=== PATIENT | male | born 1980 | race Caucasian/White ===

== ENCOUNTER 2019-04-25 09:45 | Inpatient (IN) | payer BC ==
[~2019-04-25 09:45] MED LIST: Buffered Lidocaine 1% SYRIN* 1 ML/SYRINGE INTRADERM ONE; Dexamethasone IV* 4 MG/ML 1 ML (4 MG) IV SLOW PU ONE; DiMENhydriNATE IV* 50 MG/ML VIAL IV PUSH PRN; Famotidine IV* 10 MG/ML 2 ML (20 mg) IV ONE; Lactated Ringers 1000 ML Bag* 1,000 ML IV SCH; Naloxone* 0.4 MG/ML 1 ML VIAL IV PRN; Ondansetron ODT TAB* 4 MG PO ONE; PROCHLORPERAZINE INJ 5 MG/ML 2 ML VIAL IV PRN; Scopolamine 1.5 mg* PATCH TRANSDERM PRN; fentaNYL* 50 MCG/ML 2 ML VIAL (100 MCG VIAL) IV PRN
[2019-04-25] MEDS ORDERED: Propofol* 10 MG/ML 20 ML BTL ONE (10:05)
[2019-04-25] MEDS ORDERED: Lidocaine 2% PF * 5 ML VIAL ONE (10:06)
[2019-04-25] MEDS ORDERED: Midazolam* 1 MG/ML 5 ML VIAL (5 MG) ONE (10:07)
[2019-04-25] MEDS ORDERED: KETAMINE HCL* 50 MG/ML 10 ML VIAL ONE (10:07)
[2019-04-25] MEDS ORDERED: fentaNYL* 50 MCG/ML 5 ML VIAL (250 MCG VIAL) ONE (10:07)
[2019-04-25] MEDS ORDERED: Rocuronium* 10 MG/ML VIAL ONE ×2 (10:07→13:14)
[2019-04-25] MEDS ORDERED: Heparin VIAL(*) 5000 UNITS/ML VIAL (FIVE THOUSAND) ONE (11:31)
[2019-04-25] MEDS ORDERED: ceFAZolin 2 GM PREMIX in ORs 2 GM/50 ML BAG ONE (11:32)
[2019-04-25] MEDS ORDERED: ceFAZolin 1 GM ADVAN(*) 1 GM ADDV.VIAL IVPB ONE (11:32)
[2019-04-25] MEDS ORDERED: Dexamethasone IV* 4 MG/ML 1 ML (4 MG) ONE (11:32)
[2019-04-25] MEDS ORDERED: Famotidine IV* 10 MG/ML 2 ML (20 mg) ONE (11:32)
[2019-04-25] MEDS ORDERED: Methylene Blue 0.5 %* 50 MG/10 ML AMP IV ONE (11:45)
[2019-04-25] MEDS ORDERED: Bupivacaine 0.25% W/EPI* 10 ML SDV ONE (11:45)
[2019-04-25] MEDS ORDERED: Ondansetron INJ* 2 MG/ML VIAL ONE (11:47)
[2019-04-25] MEDS ORDERED: Ondansetron ODT TAB* 4 MG ONE (11:49)
[2019-04-25] MEDS ORDERED: Scopolamine 1.5 mg* PATCH ONE (13:05)
[2019-04-25] MEDS ORDERED: Acetaminophen IV 1GM/100ML * 100 ML ONE (13:15)
[2019-04-25] MEDS ORDERED: HYDROmorphone INJ1* 1 MG/ML SYRINGE ONE ×2 (13:48→15:56)
[2019-04-25] MEDS ORDERED: Sugammadex * 500 MG/5 ML VIAL IV PUSH ONE (14:48)
[2019-04-25] MEDS ORDERED: Labetalol IV* 5 MG/ML 20 ML VIAL ONE (15:01)
--- NOTE | 2019-04-25 15:20 | BRIEFOPN ---
Brief Operative/Procedure Note - Operation Details Pre-Op Diagnosis: morbid obesity Post-Op Diagnosis: same Procedures: Laparoscopic sue en y gastric bypass Surgeon(s)/Proceduralists: Dr. Osman. Assist: ENRIQUE Emmanuel; TOM Brasher Anesthesia: GET Estimated Blood Loss: <50cc; IV fluids 1500cc Findings: same Specimen(s)/Culture(s) Description: none Complications: none
[2019-04-25] MEDS ORDERED: hydrALAZINE IV* 20 MG/ML VIAL ONE (15:29)
[2019-04-25] MEDS ORDERED: Acetaminophen ADULT LIQ* 650 MG/20.3 ML UDC PO PRN (15:36)
[2019-04-25] MEDS ORDERED: PROCHLORPERAZINE INJ 5 MG/ML 2 ML VIAL ONE (15:47)
[2019-04-25] MEDS ORDERED: DiMENhydriNATE IV* 50 MG/ML VIAL ONE (15:48)
[2019-04-25] MEDS ORDERED: Ketorolac INJ* 30 MG/ML 1 ML VIAL ONE (15:56)
[2019-04-25] MEDS: Ketorolac INJ* 30 MG/ML 1 ML VIAL IV SCH ×2 (15:57→22:01)
[2019-04-25] MEDS: HYDROmorphone INJ1* 1 MG/ML SYRINGE IV PRN ×5 (16:00→16:43)
[2019-04-25] MEDS: Lactated Ringers 1000 ML Bag* 1,000 ML IV SCH (17:38)
[2019-04-25] MEDS: Ondansetron INJ* 2 MG/ML VIAL IV PRN (20:06)
[2019-04-25] MEDS: HYDROmorphone INJ1* 1 MG/ML SYRINGE IV SLOW PU PRN (20:07)
[2019-04-25] MEDS: Famotidine IV* 10 MG/ML 2 ML (20 mg) IV SLOW PU SCH (21:54)
[2019-04-25] MEDS: Heparin VIAL(*) 5000 UNITS/ML VIAL (FIVE THOUSAND) SUBCUT SCH (22:01)
--- NOTE | 2019-04-25 22:17 | OP ---
CC: [facility]; Dr. Magdi Judge * DATE OF OPERATION: 04/25/19 - ROOM #352 DATE OF : 76 SURGEON: Wu Osman MD OUTSIDE [employer] CONSULTANT: ENRIQUE Cody ANESTHESIOLOGIST: Dr. Dalton. ANESTHESIA: General anesthesia. PRE-OP DIAGNOSIS: Clinically severe obesity. POST-OP DIAGNOSIS: Clinically severe obesity. OPERATIVE PROCEDURE: Laparoscopic Srinivasa-en-Y gastric bypass. BLOOD LOSS: Less than 50 cc. CRYSTALLOID FLUID: Please see report for details. DRAINS: None. SPECIMEN: None. DESCRIPTION OF PROCEDURE: The patient was identified in the preoperative area. Marked consent was signed after discussion of the case with him and his family member. He was then seen by the anesthesiologist in the team and brought to the operating room and placed on the operating table in the supine position. Preoperative antibiotics were given. Sequential devices were placed on bilateral lower extremities. General anesthesia was induced. The patient's abdomen was prepped and draped in the standard surgical fashion. A time-out was performed. Folds of the umbilicus were elevated anteriorly and a Veress needle was inserted into the abdominal cavity, which was then allowed to insufflate to a pressure of 15 mmHg. The patient tolerated the insufflation well. Laton between the umbilicus and xiphoid, a 12 mm optical trocar was inserted. The Veress needle was then able to be removed and review of the abdomen showed bulky appearing liver. There is no free fluid. The bowel appeared intact and peristalsing with a large omentum. Additional trocars were placed in the following position: A 5-mm and a 12-mm in the left upper quadrant and a 5-mm and a 12-mm in the right upper quadrant. Next, the omentum was reflected superiorly, the transverse colon identified and a window made through the leaflet of the omentum and the omentum was split with LigaSure device right up towards the stomach. Next, the patient was placed in a steep reverse Trendelenburg. The Daniel retractor was inserted and the bulky liver was retracted anteriorly into the right, this exposed the gastroesophageal fat pad, which was grasped and retracted towards the right lower quadrant. Both blunt and sharp dissection was carried out to expose the gastrophrenic ligament and we kept it safe without dissecting it. We then made a retrogastric tunnel at approximately the second crossing vessel and a 45 mm pedraza [place] stapling device was fired through this. The stomach pouch was completed with 2 additional 60 mm staplers. The last stapler placed over a 32- Arabic Gita tube. Additional 45 mm pedraza stapler was used at the upper portion just to trim off a small edge to create a more normal appearing pouch. This additional triangular area was attached to the remnant and it was trimmed off. We removed it and did not pass it off as specimen. With the appropriately sized pouch as I felt, we then went to the transverse colon again, identified the ligament of Treitz and counted off approximately 50 cm. In the appropriate orientation, an omega loop was then sutured to the lateral edge of the stomach pouch. Next, we created a gastrojejunostomy anastomosis after making a gastrotomy over the Gita tube and an enterotomy. We did this with a 30 mm pedraza [place] stapling device and closed the common defect with running 3-0 PDS sutures at time in the middle. Additional 3-0 silk sutures were used to buttress this. Next, the Gita tube was passed through the anastomosis, it passed freely into the Srinivasa limb. We backed this out and then transected the omega loop at the appropriate site just leaving about a 1 cm cuff of efferent limb into the gastrojejunostomy anastomosis. Next, the Gita tube was passed into the Srinivasa limb again and a methylene blue dye test was performed and was negative. The tube was then removed by the anesthesiologist and attention was turned towards the Srinivasa limb. Approximately, 80 cm was counted off the Srinivasa limb and this was brought in opposition to the biliopancreatic limb with the appropriate orientation of the mesentery. We then walked this bowel antegrade towards the terminal ileum to ensure that we had a significant amount of bowel distal to the jejunojejunostomy. Next, the jejunojejunostomy was created in a standard fashion with 60 mm pedraza CHE[place]NE stapling device and the common defect closed with 2-0 silk sutures and the mesenteric defects similarly closed with 2-0 silk sutures in a [id number] fashion. Review of the Srinivasa limb showed that it laid in appropriate orientation. There is no bleeding or bile. We removed the Daniel retractor and the liver fell back on to the gastric pouch fully obscuring it. The needle count and the gauze counts were good. The abdomen was allowed to collapse. Trocars were removed under direct vision and all 6 skin incisions were reapproximated with 4-0 Monocryl subcuticular sutures. Steri-Strips and sterile dressing were applied. The patient tolerated the procedure well, was transferred to the PACU in stable condition. [id number]/[facility] #: [id number] MTDD
[2019-04-26] MEDS: Lactated Ringers 1000 ML Bag* 1,000 ML IV SCH ×2 (00:33→07:44)
[2019-04-26] MEDS: HYDROmorphone INJ1* 1 MG/ML SYRINGE IV SLOW PU PRN ×3 (03:10→19:19)
[2019-04-26] MEDS: Ketorolac INJ* 30 MG/ML 1 ML VIAL IV SCH ×4 (04:10→21:45)
[2019-04-26] MEDS: Heparin VIAL(*) 5000 UNITS/ML VIAL (FIVE THOUSAND) SUBCUT SCH ×3 (07:02→21:45)
[2019-04-26] MEDS: Famotidine IV* 10 MG/ML 2 ML (20 mg) IV SLOW PU SCH ×2 (08:00→21:45)
[2019-04-26] MEDS: Ondansetron INJ* 2 MG/ML VIAL IV PRN ×2 (10:06→16:24)
--- NOTE | 2019-04-26 11:41 | PN ---
Progress Note - Progress Note Date of Service: 04/26/19 Note: S: POD #1. Doing well overall. Seen earlier this a.m. by Dr. Osman. Pain controlled w/ Toradol and dilaudid. Has some nausea, worse after walking. No flatus. O: Vital Signs - 8 hr 04/26/19 04/26/19 04/26/19 04:10 07:45 08:00 Temperature Pulse Rate Respiratory 18 18 16 Rate Blood Pressure (mmHg) O2 Sat by Pulse 92 Oximetry 04/26/19 04/26/19 04/26/19 08:11 08:39 09:21 Temperature 98.3 F Pulse Rate 68 Respiratory 16 18 Rate Blood Pressure 120/69 (mmHg) O2 Sat by Pulse 91 92 Oximetry Intake and Output Last 24 Hours 04/24/19 04/25/19 04/26/19 04/27/19 06:59 06:59 06:59 06:59 Intake Total 2580 1008 Output Total 700 Balance 1880 1008 Weight 253 lb 12.8 oz Intake: IV Fluids 2580 1008 LR 2580 1008 Oral 0 Output: Urine 700 Other: # Voids 1 Heart: reg Lungs: clear Abd: +BS; lap sites ok under tegaderms; soft; mild incisional tenderness only Extr: SCDs on UGI: Indication: Status post gastric bypass. Approximately 0.5 minutes of fluoroscopy time was used. Water-soluble contrast was given to the patient. Oral and frontal phase of deglutition appear unremarkable. The esophagus appears unremarkable. Gastric pouch demonstrates no obstruction. Free flow of contrast into the small bowel is noted. No extraluminal contrast is identified. IMPRESSION: No extraluminal contrast is noted. No obstruction is identified. A: s/p lap sue en y gastric bypass, doing well P: start di clears; if bibiana well, poss d/c later this pm
[2019-04-26] MEDS: HYDROcodone/ACET. 7.5/325 LIQ* 15 ML UDC PO PRN (13:40)
[2019-04-26] MEDS: D5W 1/2 NS KCl 20 Meq 1000 ML* 1,000 ML IV SCH (16:21)
[2019-04-27] MEDS: HYDROcodone/ACET. 7.5/325 LIQ* 15 ML UDC PO PRN ×2 (00:13→10:34)
[2019-04-27] MEDS: D5W 1/2 NS KCl 20 Meq 1000 ML* 1,000 ML IV SCH (00:15)
[2019-04-27] MEDS: Ketorolac INJ* 30 MG/ML 1 ML VIAL IV SCH ×2 (04:14→09:51)
[2019-04-27] MEDS: Heparin VIAL(*) 5000 UNITS/ML VIAL (FIVE THOUSAND) SUBCUT SCH (05:40)
[2019-04-27 08:09] VITALS: BP 100/52
--- NOTE | 2019-04-27 09:17 | PN ---
Progress Note - Progress Note Date of Service: 04/27/19 SOAP: Subjective: Pt tolerating bariatric clears, has had a BM, is ambulating well and would like to go home. [] Objective: Vital Signs Temp 98.0 F 04/27/19 08:08 Pulse 66 04/27/19 08:08 Resp 18 04/27/19 08:08 BP 100/52 04/27/19 08:08 Pulse Ox 97 04/27/19 08:08 Intake & Output 04/26/19 04/27/19 04/27/19 18:59 06:59 18:59 Intake Total 2349 1150 Output Total 350 1425 Balance 1998 Intake: IV Fluids 1988 940 D5W 07/14 NS 20 meq KCL 940 LR 1988 Oral 360 210 Output: Urine 350 1425 Other: Estimated Void Medium # Bowel Movements 2 Estimated Stool Amount Medium # Voids 1 PEX:[] Chest: CTA B/L CVS: RRR ABD: Incision sites tegaderm dressings C/D/I incisional tenderness, soft, hypoactive BS's EXT: calves soft B/L, Non tender Assessment: 38 yo male POD #2 S/P sue en y gastric bypass. Tolerating Vazquez clears, + BM's [] Plan: D/C home in stable condition. F/U in office as scheduled. []
--- NOTE | 2019-04-27 09:47 | DS ---
DISCHARGE SUMMARY: DATE OF ADMISSION: 04/25/19 DATE OF DISCHARGE: 04/27/19 SURGEON: Dr. Wu Osman.* (DICTATED BY ENRIQUE JAMES) DISCHARGE DIAGNOSIS: Morbid obesity. REASON FOR ADMISSION: Morbid obesity. HOSPITAL COURSE: The patient admitted on 04/25/19 for a Srinivasa-en-Y gastric bypass surgery. The patient tolerated the procedure well, was then transferred to the recovery room and later to the surgical care unit for postoperative medical care. Postop medical course was uneventful. On 04/27/19, postop day 2, the patient's wounds were clean, dry and intact. His lungs were clear. He was moving his bowels, tolerating his bariatric liquid diet. The patient will be discharged home today in stable condition. Discharge instructions were given regarding his diet, his medications, his activity and his followup. All questions were answered. patient is discharged home in stable condition on 04/27/19. ENRIQUE JAMES [id number]/[facility] #: [id number] MTDD
[2019-04-27] MEDS: Famotidine IV* 10 MG/ML 2 ML (20 mg) IV SLOW PU SCH (09:51)
[2019-04-28] MEDS ORDERED: Scopolamine PATCH Remove* 1 NOTE MISC PATCH OFF ONE (05:59)
== END 2019-04-27 10:50 | disposition home or self-care (01) | DRG 403 ==
LOC: AA 10:45 → SSU 15:36
PROVIDERS: ADMIT Surgery; ATTEND Surgery
PROC: 0D164ZA Bypass Stomach to Jejunum, Percutaneous Endoscopic Approach (ICD-10-PCS; principal; 2019-04-25 12:15)
DX: E66.01 Morbid (severe) obesity due to excess calories (principal); E11.9 Type 2 diabetes mellitus without complications; G47.33 Obstructive sleep apnea (adult) (pediatric); K21.9 Gastro-esophageal reflux disease without esophagitis; E78.00 Pure hypercholesterolemia, unspecified; I11.9 Hypertensive heart disease without heart failure; E78.5 Hyperlipidemia, unspecified; Z68.41 Body mass index [BMI] 40.0-44.9, adult; Z72.89 Other problems related to lifestyle; Z87.891 Personal history of nicotine dependence; Z98.52 Vasectomy status
CPT/HCPCS: 43644; 74246; A9270-GY; C1776; J0360; J0690; J0780; J1100; J1170; J1240; J1644; J1885; J2250; J2405; J2704; J3010

== ENCOUNTER 2019-08-26 17:20 | Emergency (ER) | payer BC ==
--- OUTSIDE RECORDS SUMMARY | 2019-08-26 17:30 | XMS REPORT | Continuity of Care Document ---
:1980 Author Organization 0001 - [facility] Address [address] [place] [address] Phone Care Team Providers Name Role Phone LUZ FRENCH NP Unavailable Unavailable Allergies, Adverse Reactions, Alerts Substance Reaction Status No Known Allergies Active Medications Medication Instructions Dosage Effective Dates Status Comments (start - stop) amoxicillin 875 mg take 1 tablet by 875 MG - Active tablet oral route every 12 hours Tamiflu 75 mg take 1 capsule by 75 MG - Active capsule oral route 2 times every day lisinopril 20 take 1 tablet by 1.00 tablet - Active mg-hydrochlorothiazi oral route every de 12.5 mg tablet day Trulicity 0.75 inject 0.5 0.75 MG - Active mg/0.5 mL milliliter by subcutaneous pen subcutaneous route injector every week in the abdomen, thigh, or upper arm rotating injection sites Zoloft 25 mg tablet take 1 tablet by 25 MG - Active oral route every day Rozerem 8 mg tablet take 1 tablet by 8 MG - Active oral route every day at bedtime omeprazole 20 mg take 1 capsule by 20 MG - Active capsule,delayed oral route every release day 30 minutes to 1 hour before a meal FreeStyle Lancets 28 use as directed to - Active E11.9 gauge check Blood sugar 2x daily blood pressure use as directed - Active monitor kit FreeStyle Lite Meter use by as directed Not Available - Active E11.9 kit route 2 times every day FreeStyle Lite take 1 by 1 - Active E11.9 Strips Subcutaneous route 2 times every day Problems Condition Effective Dates (start - stop) Clinical Status Pharyngitis due to Streptococcus species Acute pharyngitis, unspecified Procedure and treatment not carried - out, unspecified reason Plantar fasciitis, bilateral Anxiety Body mass index (BMI) 40.0-44.9, adult Type 2 diabetes mellitus with hyperglycemia Essential hypertension Personal history of nicotine - dependence Essential (primary) hypertension - Essential hypertension Insomnia, unspecified type Gastroesophageal reflux disease, esophagitis presence not specified Intractable migraine without status migrainosus, unspecified migraine type Personal history of nicotine - dependence Type 2 diabetes mellitus with hyperglycemia Chronic midline low back pain without sciatica Diarrhea, unspecified type Essential hypertension Other chronic pain - Adverse effect of insulin and oral - hypoglycemic drugs, init [facility] (current) use of oral - hypoglycemic drugs Personal history of nicotine - dependence Type 2 diabetes mellitus with hyperglycemia Essential hypertension BMI 40.0-44.9, adult [employer] (current) use of oral - hypoglycemic drugs Personal history of nicotine - dependence Frequent headaches Essential hypertension Acute non-recurrent maxillary sinusitis Personal history of nicotine - dependence Sleep apnea in adult Procedure and treatment not carried - out, unspecified reason Essential hypertension Type 2 diabetes mellitus with hyperglycemia Plantar fasciitis, bilateral Other [facility] (current) drug therapy - [employer] (current) use of oral - hypoglycemic drugs Personal history of nicotine - dependence Type 2 diabetes mellitus with - hyperglycemia Plantar fasciitis, bilateral Plantar fasciitis, bilateral Essential hypertension Nonintractable episodic headache, unspecified headache type Obesity, morbid, BMI 40.0-49.9 Type 2 diabetes mellitus with hyperglycemia Personal history of nicotine - dependence Patient's other noncompliance with - medication regimen Body mass index (BMI) 40.0-44.9, adult - Type 2 diabetes mellitus without complications Type 2 diabetes mellitus without complications Anxiety Essential (primary) hypertension Personal history of nicotine - dependence Patient's other noncompliance with - medication regimen Prediabetes Curvature of the penis Cough Strep pharyngitis Type 2 diabetes mellitus without complications Encounter for screening for malignant - neoplasm of prostate Type 2 diabetes mellitus without - complications Essential (primary) hypertension - Essential (primary) hypertension Type 2 diabetes mellitus without complication, without long-term current use of insulin Acute non-recurrent maxillary sinusitis Status, sterilization, vasectomy - Sterilization - Contraceptive counseling NEC - Rash and nonspecific skin eruption Procedures Procedure Date Procedure Unknown Results Test Name Date and Time Measure Units Reference Range Abnormal Flag Status Comments Unknown Encounters Encounter Practice Location Reason(s) Diagnoses Date Provider Providers Description For Visit Copied on Encounter 2019 - S Pharyngitis due to Tomi-0 [employer], Primary Streptococcus 9- LUZ. 33-57 Care speciesAcute 0 54 [facility] pharyngitis, [place], [place], [place], unspecified [address]. [place] tel:[phone] [place], [place], [address], [place] tel:[phone] 0001 - [facility] Tomi-0 [employer], Primary 8-202 DOM. 54 33-57 Care 0 [facility], [place], [place], [place] [address]. [place], tel:[phone], 051753 tel:[phone] 0001 - S Dec-0 [employer], Primary 9-201 LUZ. 33-57 Care 9 [address] [place], [place], [place], [address]. [place] tel:[phone] [facility] [phone], [place] tel:[phone] 0001 - [facility] Oct-0 [employer], Primary 2-201 DOM. 54 33-57 Care 9 [facility], [place], [place], [place] [address]. [place], tel:[phone], 926940 tel:[phone] 0001 - [employer] Procedure and [employer], Primary treatment not 6 DOM. 54 Care carried out, 9 [facility] unspecified reason [facility], [place], [place], [place] [address]. [place], tel:[phone], [place] [address] tel:[phone] 0001 - S Feb-0 [employer]ISING [employer] Inc, Primary 8 LUZ. Care 9 [address] [place], [place], [place], [address]. [place] tel:[phone] [place], [place], [phone], [place] tel:[phone] 0001 - S Jan- [employer], Primary 0 DOM. 54 Care 9 [facility], [facility], [place], [place], [place] [address]. [place], tel:[phone], 067114 tel:[phone] 0001 - S Plantar fasciitis, MARY KAY S Inc, Primary bilateralAnxiety [place]. Care 9 [address] [place], [place], [place], [address]. [place] tel:[phone] [place], [place], 24[address], [place] tel:[phone] 0001 - S 0 [employer], Primary DOM. 54 Care 9 [facility], [place], [place], [place] [address]. [place], tel:[phone], [place] 866819 tel:[phone] 0001 - S Body mass index Zack- [employer], Primary (BMI) 40.0-44.9, DOM. 54 Care adultType 2 9 [facility] diabetes mellitus [facility], [place], [place], [place] hyperglycemiaEssent [address]. [place], ial tel:[phone], [place] hypertensionPersona [id number] tel:[phone] l history of [id number] nicotine dependence 0001 - S Essential (primary) MARY KAY S Inc, Primary hypertension 9-201 [place]. Care [address], Jose C [place], [place], [address]. [place] tel: [place], [place], [phone], [place] tel: [phone] 0001 [facility] Essential MARY KAY [employer] [facility], Primary hypertensionInsomni 4-201 [place]. Care a, unspecified [address], Jose C [place] typeGastroesophagea [place], [place], Street, l reflux disease, [address]. [place] esophagitis tel: [place], [place], presence not [phone], [place] specifiedIntractabl tel: e migraine without [phone] status migrainosus, unspecified migraine typePersonal history of nicotine dependence 2019 [facility] Type 2 diabetes Sep- [facility], Primary mellitus with 5-201 DOM. 54 Care hyperglycemiaChroni [address], Jose C Dickerson c midline low back [facility], Street, pain without [place], [place] sciaticaDiarrhea, [address]. [facility], [place], unspecified tel: [phone], [place] typeEssential [id number] tel: hypertensionOther [id number] chronic painAdverse effect of insulin and oral hypoglycemic drugs, initLong term (current) use of oral hypoglycemic drugsPersonal history of nicotine dependence 2019 [facility] Type 2 diabetes Aug- MARY KAY [facility], Primary mellitus with 5-201 [place]. Care hyperglycemiaEssent [address] , Jose C [place] ial hypertensionBMI [place], [place], Street, 40.0-44.9, [address]. [place] adultLong term tel: [place], (current) use of [phone], [place] oral hypoglycemic tel: drugsPersonal [id number] history of nicotine dependence 0001 [facility] Frequent RISING [employer] [facility], Primary headachesEssential 7-201 LUZ. Care hypertensionAcute [address] , Jose Cmaritza Dickerson non-recurrent [place], [place], Street, maxillary [address]. [place] sinusitisPersonal tel: [place], [place], history of nicotine [phone] [phone], [place] dependence tel:[phone] 0001 - [facility] Zack-0 JUDGE [employer] [facility], Primary DOM. 54 33-57 Care 8 [facility], [place], [place], [place] [address]. [place], tel:[phone], [place] 150456 tel:[phone] 0001 - [facility] Sleep apnea in [facility], Primary adult DOM. 54 33-57 Care 8 [facility], [place], [place], [place] [address]. [place], tel:[phone], [place] 039640 tel:[phone] 0001 [facility] and [facility], Primary treatment not DOM. 54 33-57 Care carried out, 8 [facility] unspecified reason [facility], [place], [place], [place] [address]. [place], tel:[phone], [place] 146141 tel:[phone] 0001 - [facility] Essential Mar-2 RISING [facility], Primary hypertensionType 2 LUZ. 33-57 Care diabetes mellitus 8 54 [facility] with [place], [place], [place], hyperglycemiaPlanta [address]. [place] r fasciitis, tel:[phone] [place], bilateralOther long [phone], [place] term (current) drug tel:+60 therapyLong term [id number] (current) use of oral hypoglycemic drugsPersonal history of nicotine dependence 0001 - [facility] Type 2 diabetes Sep- JUDGE S [facility], Primary mellitus with DOM. 54 33-57 Care hyperglycemia 8 [facility], [place], [place], [place] [address]. [place], tel:[phone], [place] 974613 tel:[phone] 0001 [facility] Ortho Plantar fasciitis, Mar-0 [facility]. [facility] Inc, Ctr Pod bilateral [address], [place], [place], Street, [address]. [place] tel:[phone] [place], [place], [address], [place] tel:[phone] 0001 - [facility] Plantar fasciitis, Feb-0 [facility], Primary bilateralEssential 8- DOM. 54 33-57 Care hypertensionNonintr [address] , [facility] actable episodic [facility], Street, headache, [place], [place], [place] unspecified [address]. [place], headache tel:+ [phone], [place] typeObesity, 248648 tel:+ morbid, BMI [id number] 40.0-49.9Type 2 diabetes mellitus with hyperglycemiaPerson al history of nicotine dependencePatient's other noncompliance with medication regimenBody mass index (BMI) 40.0-44.9, adult 0001 - [facility] Type 2 diabetes Dec-2 [facility], Primary mellitus without 9- LUZ. 3357 Care complications 7 [address] [place], [place], [place], [address]. [place] tel:+ [place], [place], [phone], [place] tel:+ [phone] 2019 - [facility] Type 2 diabetes Sep-1 [facility], Primary mellitus without 5-201 LUZ. Care complicationsAnxiet 7 54 [facility] yEssential [place], [place], [place], (primary) [address]. [place] hypertensionPersona tel:+ [place], l history of [phone] [address], [place] nicotine tel:+ dependencePatient's [phone] other noncompliance with medication regimen 0001 - [facility] PrediabetesCurvatur Mar-0 [facility], Primary e of the penis 3-201 KERRI. [address] Care [address] [place] [address], [place], [place], [place] [address]. [place], tel:+ [phone], [place] 28[address] tel:+ [phone] 0001 - [facility] CoughStrep Jul- [employer]LY, Primary pharyngitis 0-201 DOM. 54 33-57 Care 7 [facility], Street, [place], [place], [place] [address]. [place], tel:[phone], [place] 238171 tel:[phone] 0001 - S Type 2 diabetes Oct-2 KIARRA [employer], Primary mellitus without 7- KERRI. 260 33-57 Care complications [address] [place] [address], [place], [place] [address]. [place], tel:[phone], [place] 378651 tel:[phone] 0001 - S Encounter for Oct-2 JUDGE [employer], Primary screening for 6- DOM. 54 33-57 Care malignant neoplasm 6 [facility], Jose C Dickerson of prostateType 2 [facility], Street, diabetes mellitus [facility] without [address]. [place], complicationsEssent tel:[phone], [place] ial (primary) 577451 tel:[phone] hypertension [phone] 0001 - S Essential (primary) Oct-1 KIARRA [employer], Primary hypertensionType 2 1- KERRI. 260 33-57 Care diabetes mellitus 6 [place] Jose C Dickerson without [place], complication, [place], [place] without long-term [address]. [place], current use of tel:[phone], [place] insulin 523263 tel:[phone] 0001 - S Acute non-recurrent Feb- KIARRA [facility] Inc, Primary maxillary sinusitis KERRI. 260 33-57 Care [address] [place] [address], [place], [place] [address]. [place], tel:[phone], [place] 930977 tel:[phone] 0001 - S Aug- EMILIO [employer], Urology 8-201 AHMED. S 33-57 5 30 [facility] [address], [place], [place], [place], [address]. [address], [place] tel:[phone] tel:[phone] 0001 - S Status, Aug- EMILIO [facility] Inc, Urology sterilization, 0-201 AHMED. S 33-57 vasectomy 5 30 [facility] [address], [place], [place], [place], [place], [address]. [address], [place] tel:[phone] tel:[phone] 0001 - [facility] Sterilization Feb-0 EMILIO S Inc, Urology AHMED. [facility] 57 5 30 Jose Cmaritza [address], [address], [place], [place], [place], [address]. [address], [place] tel:[phone] tel:[phone] 0001 - [facility] Contraceptive Zack-0 EMILIO S Inc, Urology counseling [facility]. [facility] 3357 5 30 [facility] [address], [address], [facility], [place], [place], [address]. [address], [place] tel:[phone] tel:[phone] 0001 - S Rash and May- Referring [facility] Inc, Walk-In nonspecific skin Provider: [address] [place] [address]. [place], [address], tel:[phone] Family History Family Member Diagnosis Age At Onset Unknown Immunizations Vaccine Date Status Comments Immunization Unknown Payers Payer name Insurance type Covered alliance party ID Authorization(s) Abigail Mckeon [id number] Social History Type Description Quantity Date Captured Comments Alcohol Use Details Unknown Caffeine Use Details Unknown Tobacco Use Status Unknown Smoking Status Unknown Vital Signs Date / Height Weight BMI Pulse Blood Temperature Respiratory Body Head BMI Time: Rate Pressure Rate Surface Circumference percentile Area Unknown Chief Complaint And Reason For Visit No information Reason For Referral Reason For Referral Unknown Plan Of Care Date Type Action Status Referral Ordered: ordered Referrals: Bariatric Surgery. Location: [facility]. Evaluate and treat Appointment date/timeframe: 10/19/2018 Referral Ordered: ordered NORI AGOSTO MD -Sleep Disorders (related to Sleep apnea in adult) Referral Referred To: ordered NORI AGOSTO MD [address] [place] [address], [address] [phone] Ordered: Referrals: Sleep Disorders. NORI AGOSTO MD. Evaluate and treat Appointment date/timeframe: 4 Months Referral Ordered: ordered Diabetes Education (related to Type 2 diabetes mellitus with hyperglycemia ) Referral Ordered: ordered Referrals: Diabetes Education. Location: [facility]. Evaluate and treat Referral Ordered: ordered Xray Foot complete (Must choose side) Bilateral foot standing Referral Ordered: ordered Podiatry (related to Plantar fasciitis, bilateral) Referral Ordered: ordered Referrals: Podiatry. Location: [facility] Podiatry Alex. Evaluate and treat Appointment date/timeframe: 2 Months Referral Referred To: ordered TOAN FALL MD [address] [place], [address] [phone] Ordered: Referrals: Urology. TOAN FALL MD. Evaluate and treat Appointment date/timeframe: 09/15/2016 Referral Referred To: ordered [address] [place], [address] [phone] Ordered: Referrals: [employer]. [address]. Consult Date Type Problem Goal Intervention Status Start Date Unknown History Of Present Illness Encounter Date Complaint History Of Present Illness No information Functional Status Encounter Date Functional Assessment Cognitive Assessment Unknown Medications Administered Medication Instructions Dosage Effective Dates (start - stop) Status Comments Drug Treatment Unknown Instructions Date Instruction Additional Information Rapid strep positive Related to Acute pharyngitis, unspecified use the amoxicillin 875mg 2xday for 10 Related to Pharyngitis due to days. Drink plenty of fluids to Streptococcus species prevent dehydrationGargling with warm salt waterUse a humidifierRestThroat lozenges to help soothe sore throatIbuprofen or Tylenol for pain or discomfort Patient advised to call office for Related to Plantar fasciitis, worsening or unresolved symptoms. bilateral Zoloft 25mg once daily. Risks and Related to Anxiety benefits of new medication discussed. Plan to check at next visit with Dr. Judge. Sumatriptan. Take as directed. No more Related to Intractable migraine than 9 tablets in 1 month can be used. without status migrainosus, No more than 2 tablets in 24 hours. unspecified migraine type Continue Lisinopril 10mg daily. Goal BP Related to Essential hypertension <140/90. Maintain a low-sodium diet (less than 2 grams per day). DASH diet recommended for patients with high blood pressure. Advised to exercise for at least 30min/day, 5 times per week. Advised to monitor BP at home and call office or bring in readings. May stop into office for BP check when necessary or if symptomatic. Advised to call office or go to ED for chest pain, shortness of breath, unresolvable headache, dizziness/lightheadedness, or changes in vision. Rozerem once nightly. Patient advised Related to Insomnia, unspecified to call office for worsening or type unresolved symptoms. Omeprazole 20mg once daily 30min to 1 Related to Gastroesophageal reflux hour before meal. Avoid trigger foods. disease, esophagitis presence not Avoid spicy foods, red sauces, and specified known triggers. Do not eat or drink liquids up to 1 hour before bed due to increase in symptoms. Call office for increased heartburn, pain in esophagus or chest, or worsening of symptoms. Risks and benefits of new medication Related to Type 2 diabetes discussed. mellitus with hyperglycemia Goal BP <140/90. Maintain a low-sodium Related to Essential hypertension diet (less than 2 grams per day). DASH diet recommended for patients with high blood pressure. Advised to exercise for at least 30min/day, 5 times per week. Advised to monitor BP at home and call office or bring in readings. May stop into office for BP check when necessary or if symptomatic. Advised to call office or go to ED for chest pain, shortness of breath, unresolvable headache, dizziness/lightheadedness, or changes in vision. Will discuss metformin dosing over the Related to Type 2 diabetes phonePatient will be contacted for mellitus with hyperglycemia testing results.Moderate carbohydrate and sugar intake. Eat foods that have healthy fats such as nuts, olive oil, fish oils, and avocados. Fresh fruits and vegetables, whole fruit rather than juices. High fiber cereals and breads that are made from whole grains or legumes. Fish, chicken or turkey. High quality protein such as eggs, beans, low fat dairy and unsweetened yogurt.Eat less trans fat. deep fried foods, packaged and processed foods. Avoid foods that are high sugar such as baked goods, and candy. Avoid white bread, refined pastas or rice. Avoid starchy vegetables such as potatoes and corn. Limit processed meat and red meat.Perform daily foot checks to assess for any open wounds, keep toenails trimmed, always wear shoes when up walking around. i believe these are related to sinus Related to Frequent headaches infection and not taking blood pressure medications as directedIf they do not improve after treatment please contact office for follow up start to use the lisinopril/hctz Related to Essential hypertension consistently as directed use amoxicillin 875mg 2xday for 10 Related to Acute non-recurrent days. maxillary sinusitis note for work Related to Plantar fasciitis, bilateral Increase metformin to 500mg 2xday for 1 Related to Type 2 diabetes week and then 500mg 2 tabs in the am mellitus with hyperglycemia and then 1 tab in the evening meal. We will consider putting patient on Trulicity after getting established on metforminReferral to diabetes educationEat foods that have healthy fats such as nuts, olive oil, fish oils, and avocados. Fresh fruits and vegetables, whole fruit rather than juices. High fiber cereals and breads that are made from whole grains or legumes. Fish, chicken or turkey. High quality protein such as eggs, beans, low fat dairy and unsweetened yogurt.Eat less trans fat. deep fried foods, packaged and processed foods. Avoid foods that are high sugar such as baked goods, and candy. Avoid white bread, refined pastas or rice. Avoid starchy vegetables such as potatoes and corn. Limit processed meat and red meat.Increase exercise to 30 minutes per day on most days of the week of moderate intensity such as walking.perform daily foot checks to assess for any open wounds, keep toenails trimmed, always wear shoes when up walking around.Yearly eye exams recommended.Keep blood pressure below 140/90, to help ensure kidney health. Change blood pressure medications to Related to Essential hypertension Lisinopril/hctz 20/12.5 1 tab once per day. Consume a low salt diet with sodium intake of 1500mg per day, daily exercise of at least 30 minutes per day most days of the week and maintain an ideal body weight. Avoid stimulants such as caffeine, nicotine, and moderate alcohol intake. Goal for blood pressure is less than 140/90. Start taking sertraline 50mg once per Related to Anxiety day for 7 days, then 100mg once per day for 7 days, then 150mg once per day. Use hydroxyzine 50mg 2 tabs up to 4xday as needed for anxiety. Start to take lisinopril 10mg once per Related to Essential ( primary) day. follow up in 2 weeks hypertension Restart taking metformin, complete lab Related to Type 2 diabetes work and follow up in 2 weeks mellitus without complications start metformin as prescribed. Risks Related to Prediabetes and benefits of new medication discussed. Patient verbalized understanding. Will order glucometer and supplies for you to check sugars at home 2x daily start amoxicillin bid for sinus Related to Acute non-recurrent infection. Increase fluid intake. Can maxillary sinusitis take tylenol or ibuprofen for pain. F/u with dentist as scheduled.
--- NOTE | 2019-08-26 19:12 | ED ---
Abdominal Pain/Male - HPI Summary HPI Summary: This pt is a 38 Y/O M presenting to [facility] accompanied by his with a CC of R sided abdominal pain that is currently an 8/10 in severity, described as sharp , and worsens with eating. He states that the pain started on 08/22/2019 and has not decreased since the onset. He states that he ate at 1500 and the pain has not decreased since. He states that his abdomen is tender to the touch. He denies any fevers, chills, headaches, and N/V/D. He has no alleviating factors. He states that he recently had a gastric bypass recently and lost 63 pounds since. He has a PMHx of DM, HTN, and GERD. - History of Current Complaint Chief Complaint: Madelyn Stated Complaint: STOMACH PAINS X4 DAYS PER PT Time Seen by Provider: 08/26/19 19:01 Hx Obtained From: Patient Onset/Duration: Sudden Onset, Lasting Days - 4 Timing: Constant Severity Initially: Severe Severity Currently: Severe Pain Intensity: 8 Pain Scale Used: 0-10 Numeric Location: Diffuse - R sided Radiates: No Character: Sharp Aggravating Factor(s): Food Alleviating Factor(s): Nothing Associated Signs And Symptoms: Positive: Negative - chills, headches. Negative : Fever, Nausea, Vomiting, Diarrhea - Allergies/Home Medications Allergies/Adverse Reactions: Allergies Allergy/AdvReac Type Severity Reaction Status Date / Time No Known Allergies Allergy Verified 08/26/19 19:53 PMH/Surg Hx/FS Hx/Imm Hx Previously Healthy: Yes Endocrine/Hematology History: Reports: Hx Diabetes - He states that he has "low grade" diabetes. He is watching his sugar now. Denies: Hx Anticoagulant Therapy, Hx Bone Marrow Disease, Hx Sickle Cell Disease, Hx Thyroid Disease, Hx Anemia Cardiovascular History: Reports: Hx Hypertension - He states that he is being watched for this. Usual readings: ? Denies: Hx Congestive Heart Failure, Hx Deep Vein Thrombosis, Hx Myocardial Infarction, Hx Pacemaker/ICD Respiratory History: Reports: Hx Sleep Apnea - CPAP Denies: Hx Asthma, Hx Chronic Obstructive Pulmonary Disease (COPD), Hx Lung Cancer, Hx Pneumonia, Hx Pulmonary Embolism GI History: Reports: Hx Gastroesophageal Reflux Disease - [place] OMEPRAZOLE Denies: Hx Gall Bladder Disease, Hx Gastrointestinal Bleed, Hx Ulcer, Hx Urosepsis, Other GI Disorders History: Denies: Hx Kidney Infection, Hx Kidney Stones, Hx Renal Disease, Other Problems/Disorders Musculoskeletal History: Denies: Hx Arthritis, Hx Bursitis, Hx Tendonitis, Other Musculoskeletal History Sensory History: Denies: Hx Cataracts, Hx Contacts or Glasses, Hx Glaucoma, Hx Hearing Aid Opthamlomology History: Denies: Hx Cataracts, Hx Contacts or Glasses, Hx Glaucoma Neurological History: Denies: Hx Dementia, Hx Headaches, Hx Migraine, Hx Nerve Disease, Hx Seizures , Hx Transient Ischemic Attacks (TIA), Other Neuro Impairments/Disorders Psychiatric History: Reports: Hx Anxiety - Was on Zoloft for anxiety in the past. Denies: Hx Depression, Hx Schizophrenia, Hx Bipolar Disorder, Other Psychiatric Issues/Disorders - Cancer History Hx Chemotherapy: No - Surgical History Surgical History: Yes Surgery Procedure, Year, and Place: VASECTOMY 2014. [place] Bypass 2019 Hx Anesthesia Reactions: No - Immunization History Immunizations Up to Date: Yes Infectious Disease History: No Infectious Disease History: Denies: Traveled Outside the [place] in Last 30 Days - Family History Known Family History: Positive: Cardiac Disease, Hypertension - Social History Occupation: Employed Full-time Alcohol Use: Rare Hx Substance Use: No Substance Use Type: Reports: None Hx Tobacco Use: No Smoking Status (MU): Never Smoked Tobacco Amount Used/How Often: 1/2 PPD X 10 YRS Review of Systems Negative: Fever, Chills Positive: Abdominal Pain. Negative: Vomiting, Diarrhea, Nausea Negative: Headache All Other Systems Reviewed And Are Negative: Yes Physical Exam - Summary Physical Exam Summary: Constitutional: Well-developed, Well-nourished, Alert. (-) Distressed Skin: Warm, Dry HENT: Normocephalic; Atraumatic Eyes: Conjunctiva normal Neck: Musculoskeletal ROM normal neck. (-) JVD, (-) Stridor, (-) Tracheal deviation Cardio: Rhythm regular, rate normal, Heart sounds normal; Intact distal pulses; The pedal pulses are 2+ and symmetric. Radial pulses are 2+ and symmetric. (-) Murmur Pulmonary/Chest wall: Effort normal. (-) Respiratory distress, (-) Wheezes, (-) Rales Abd: Soft, mild tenderness on the upper abdomen without guarding or rebound. (- ) Distension, (-) Guarding, (-) Rebound Musculoskeletal: (-) Edema Lymph: (-) Cervical adenopathy Neuro: Alert, Oriented x3 Psych: Mood and affect Normal Triage Information Reviewed: Yes Vital Signs On Initial Exam: Initial Vitals Temp Pulse Resp BP Pulse Ox 97.5 F 71 17 138/79 98 08/26/19 17:22 08/26/19 17:22 08/26/19 17:22 08/26/19 17:22 08/26/19 17:22 Vital Signs Reviewed: Yes Procedures - Sedation Patient Received Moderate/Deep Sedation with Procedure: No Diagnostics - Vital Signs Vital Signs Temp Pulse Resp BP Pulse Ox 08/26/19 19:00 59 97 08/26/19 18:55 60 127/85 97 08/26/19 17:22 97.5 F 71 17 138/79 98 - Laboratory Result Diagrams: 08/26/19 19:47 08/26/19 19:47 Lab Statement: Any lab studies that have been ordered have been reviewed, and results considered in the medical decision making process. - CT CT A/P CT Interpretation Completed By: Radiologist Summary of CT Findings: 1. No CT findings to correlate with patient's symptomatology. 2. Expected appearance of patient's Srinivasa-en-Y gastric bypass. ED physician has reviewed this report. - Ultrasound Gall bladder US Ultrasound Interpretation Completed By: Radiologist Summary of Ultrasound Findings: 1. Cholelithiasis without other findings of cholecystitis. 2. No findings of biliary obstruction. ED physician has reviewed this report. Re-Evaluation - Re-Evaluation First Eval Re-Evaluation Time: 21:53 Change: Improved Comment: Pt was informed of his imaging results and the current POC. Abdominal Pain Male Course/Dx - Course Course Of Treatment: This pt is a 38 Y/O M presenting to [facility] accompanied by his with a CC of R sided abdominal pain that is currently an 8/10 in severity, described as sharp, and worsens with eating. He states that the pain started on 08/22/2019 and has not decreased since the onset. He states that he ate at 1500 and the pain has not decreased since. He states that his abdomen is tender to the touch. He denies any fevers, chills, headaches, and N/V/D. He had a recent gastric bypass surgery and lost 63 pounds. His PE found mild tenderness on the upper abdomen without guarding or rebound. CT A/P: 1. No CT findings to correlate with patient's symptomatology. 2. Expected appearance of patient's Srinivasa-en-Y gastric bypass. Gall bladder US: 1. Cholelithiasis without other findings of cholecystitis. 2. No findings of biliary obstruction. Dr. Hernandez, surgery, was consulted at 2150 and informed of the pt's condition. She recommended discharge. His Dx is abdominal pain. - Diagnoses Provider Diagnoses: Abdominal pain - Provider Notifications Discussed Care Of Patient With: Licha Hernandez Time Discussed With Above Provider: 21:50 Discharge ED - Sign-Out/Discharge Documenting (check all that apply): Patient Departure - Discharge Plan Condition: Good Disposition: HOME Prescriptions: Omeprazole CAP (NF) [Prilosec CAP* 20 MG] 20 mg PO DAILY #30 cap. Patient Education Materials: Acute Abdominal Pain (ED) Referrals: Wu Osman MD [Medical Doctor] - 1 Day Additional Instructions: PLEASE FOLLOW UP WITH DR. OSMAN, SURGERY, TOMORROW AND RETURN TO THE EMERGENCY DEPARTMENT FOR ANY NEW OR WORSENING SYMPTOMS. - Billing Disposition and Condition Condition: GOOD Disposition: Home - Attestation Statements Document Initiated by Teddy: Yes Documenting Scribe: Jeffrey Bentley Provider For Whom Scribe is Documenting (Include Credential): Robin Wilson MD Scribe Attestation: Jeffrey Reynolds, omared for Robin Wilson MD on 08/27/19 at 0529. Scribe Documentation Reviewed: Yes Provider Attestation: The documentation as recorded by the Jeffrey moore accurately reflects the service I personally performed and the decisions made by , Robin Wilson MD Status of Scribe Document: Viewed
[2019-08-26 19:53] LABS: ABS Eosinophils 0.1 10^3/ul (0-0.6); ABS Lymphocytes 2.6 10^3/ul (1.0-4.8); ABS Monocytes 0.7 10^3/ul (0-0.8); ABS Neutrophils 4.6 10^3/ul (1.5-7.7); Eosinophil % 1.4 %; Hematocrit 42 % (42-52); Hemoglobin 14.4 g/dL (14.0-18.0); Lymphocyte % 32.7 %; Mean Corpuscular HGB Conc 34 g/dL (31-36); Mean Corpuscular Hemoglobin 29 pg (27-31); Mean Corpuscular Volume 85 fL (80-94); Mean Platelet Volume 8.8 fL (7.4-10.4); Nucleated Red Blood Cells % 0.1; Platelet Count 218 10^3/uL (150-450); Red Cell Distribution Width 15 % (10-15)
[2019-08-26 20:13] LABS: Albumin 4.2 g/dL (3.2-5.2); Anion Gap 5 mmol/L (2-11); CO2 Carbon Dioxide 24 mmol/L (22-32); Calcium 8.8 mg/dL (8.6-10.3); Chloride 110 mmol/L (101-111); Potassium 4.3 mmol/L (3.5-5.0); Sodium 139 mmol/L (135-145)
[2019-08-26 20:19] LABS: ALT 34 U/L (7-52); AST 18 U/L (13-39); Albumin/Globulin Ratio 1.8 (1-3); Alkaline Phosphatase 124 U/L (34-104); BUN/Creatinine Ratio 19.8 (8-20); Blood Urea Nitrogen 18 mg/dL (6-24); C Reactive Protein 3.35 mg/L (<8.01); EGFR African American 111.7 (>60); EGFR Non-African American 92.3 (>60); Globulin 2.4 g/dL (2-4); Glucose 84 mg/dL (70-100); Total Protein 6.6 g/dL (6.4-8.9)
[2019-08-26] MEDS ORDERED: Iohexol 300* (CONTRAST) 10 ML SDV IV ONE (20:20)
[2019-08-26 21:46] VITALS: BP 140/87
[2019-08-26 21:54] LABS: Urine Appearance Cloudy; Urine Bilirubin Negative (Negative); Urine Blood Negative (Negative); Urine Color Yellow; Urine Glucose Negative (Negative); Urine Ketones Negative (Negative); Urine Nitrite Negative (Negative); Urine Protein Negative (Negative); Urine Specific Gravity 1.026 (1.010-1.030); Urine Urobilinogen Negative (Negative)
[2019-08-26] MEDS ORDERED: Omeprazole CAP (NF) 20 MG CAP.DR PO ONE (21:57)
== END 2019-08-26 21:55 | disposition home or self-care (01) ==
LOC: ED 17:20
DX: R10.9 Unspecified abdominal pain (principal); K80.20 Calculus of gallbladder without cholecystitis without obstruction; E11.9 Type 2 diabetes mellitus without complications; I10 Essential (primary) hypertension; K21.9 Gastro-esophageal reflux disease without esophagitis; F41.9 Anxiety disorder, unspecified; Z98.84 Bariatric surgery status; Z98.52 Vasectomy status; Z87.891 Personal history of nicotine dependence; Z79.899 Other long term (current) drug therapy
CPT/HCPCS: 36415; 74177; 76705; 80053; 81003; 83605; 83690; 85025; 86140; 99283; A9270-GY